=== PATIENT | female | born 1980 | race Caucasian/White ===

== ENCOUNTER 2022-04-28 00:32 | Emergency (ER) | payer MEDICAID ==
[~2022-04-28] VITALS: Ht 182.9 cm; Wt 80.0 kg
[~2022-04-28 00:32] MED LIST: CETIRIZINE; SERT-434 PO
[2022-04-28 00:37] VITALS: BP 123/84
== END 2022-04-28 01:37 | disposition left against medical advice (07) ==
LOC: ER 00:33
DX: R20.0 Anesthesia of skin (principal); Z53.21 Procedure and treatment not carried out due to patient leaving prior to being seen by health care provider